=== PATIENT | female | born 1995 | race Caucasian/White ===

== ENCOUNTER 2018-01-23 15:28 | Emergency (ER) | payer OTHER ==
[2018-01-23 16:37] LABS: ADD MAN DIFF? NO
[2018-01-23 16:39] LABS: WHITE BLOOD COUNT 8.4 10^3/ul (4.8-10.8)
[2018-01-23 16:39] LABS: BASOPHILS % 0.1 % (0.0-2.0); EOSINOPHILS # 0.1 10^3/ul (0.0-0.5); EOSINOPHILS % 0.6 % (0.0-7.0); HEMATOCRIT 32.6 % (37.0-47.0); HEMOGLOBIN 11.4 g/dl (12.0-16.0); LYMPHOCYTES # 1.8 10^3/ul (0.8-2.9); LYMPHOCYTES % 20.8 % (15.0-51.0); MEAN CORPUSCULAR HEMOGLOBIN 32.3 pg (29.0-33.0); MEAN CORPUSCULAR VOLUME 92.4 fl (82.0-101.0); MEAN PLATELET VOLUME 8.9 fl (7.4-10.4); MONOCYTE # 0.5 10^3/ul (0.3-0.9); MONOCYTES % 5.5 % (0.0-11.0); NEUTROPHIL # 6.1 10^3/ul (1.6-7.5); NEUTROPHILS % 72.4 % (39.0-77.0); PLATELET COUNT 215 10^3/UL (140-415); RED BLOOD COUNT 3.53 10^6/ul (4.20-5.40); RED CELL DISTRIBUTION WIDTH 12.6 % (11.5-14.5)
[2018-01-23 16:48] LABS: ADD UMIC YES; UR ASCORBIC ACID NEGATIVE (NEGATIVE); UR BACTERIA MODERATE /HPF (NONE SEEN); UR BILIRUBIN (Dip) NEGATIVE (NEGATIVE); UR BLOOD (Dip) NEGATIVE (NEGATIVE); UR CLARITY SLIGHTLY CLOUDY (CLEAR); UR COLOR YELLOW (YELLOW); UR GLUCOSE (Dip) NEGATIVE (NEGATIVE); UR KETONES (Dip) NEGATIVE (NEGATIVE); UR LEUKOCYTE ESTERASE (Dip) 2+ Leu/ul (NEGATIVE); UR MUCUS FEW /HPF (NONE SEEN); UR NITRITE (Dip) NEGATIVE (NEGATIVE); UR RBC 1 /HPF (0-5); UR SPECIFIC GRAVITY (Dip) 1.013 (1.003-1.030); UR SQUAMOUS EPITHELIAL CELL FEW /HPF (FEW); UR TOTAL PROTEIN (Dip) NEGATIVE (NEGATIVE); UR UROBILINOGEN (Dip) NEGATIVE (NEGATIVE); UR WBC 3 /HPF (0-5)
[2018-01-23 17:05] LABS: ALANINE AMINOTRANSFERASE 15 IU/L (13-69); ALBUMIN 3.6 g/dl (3.3-4.9); ALBUMIN/GLOBULIN RATIO 1.05; ALKALINE PHOSPHATASE 54 IU/L (42-121); ANION GAP 12 (8-16); ASPARTATE AMINO TRANSFERASE 14 IU/L (15-46); BILIRUBIN,INDIRECT 0.3 mg/dl (0-1.1); BILIRUBIN,TOTAL 0.3 mg/dl (0.2-1.3); BLOOD UREA NITROGEN 9 mg/dl (7-20); CALCIUM 9.2 mg/dl (8.4-10.2); CARBON DIOXIDE 26 mmol/L (21-31); CHLORIDE 106 mmol/L (97-110); CREATININE 0.44 mg/dl (0.44-1.00); GLUCOSE 84 mg/dl (70-220); POTASSIUM 3.9 mmol/L (3.5-5.1); SODIUM 140 mmol/L (135-144)
== END 2018-01-23 17:53 | disposition home or self-care (01) ==
LOC: FTE 15:28
DX: O23.42 Unspecified infection of urinary tract in pregnancy, second trimester (principal); R10.2 Pelvic and perineal pain; Z3A.18 18 weeks gestation of pregnancy
CPT/HCPCS: 36415; 76805; 80053; 81001; 84702; 85025; 86900; 86901; 99284-25

== ENCOUNTER 2018-01-30 16:54 | Emergency (ER) | payer OTHER ==
[2018-01-30 18:18] LABS: ADD UMIC NO; UR ASCORBIC ACID NEGATIVE (NEGATIVE); UR BILIRUBIN (Dip) NEGATIVE (NEGATIVE); UR BLOOD (Dip) NEGATIVE (NEGATIVE); UR CLARITY CLEAR (CLEAR); UR COLOR STRAW (YELLOW); UR GLUCOSE (Dip) NEGATIVE (NEGATIVE); UR KETONES (Dip) NEGATIVE (NEGATIVE); UR LEUKOCYTE ESTERASE (Dip) NEGATIVE Leu/ul (NEGATIVE); UR NITRITE (Dip) NEGATIVE (NEGATIVE); UR SPECIFIC GRAVITY (Dip) 1.009 (1.003-1.030); UR TOTAL PROTEIN (Dip) NEGATIVE (NEGATIVE); UR UROBILINOGEN (Dip) NEGATIVE (NEGATIVE)
== END 2018-01-30 19:28 | disposition home or self-care (01) ==
LOC: FTE 16:54
DX: O34.82 Maternal care for other abnormalities of pelvic organs, second trimester (principal); N83.8 Other noninflammatory disorders of ovary, fallopian tube and broad ligament; Z3A.18 18 weeks gestation of pregnancy
CPT/HCPCS: 76856; 81003; 99284-25

== ENCOUNTER 2018-04-21 13:21 | Inpatient (IN) | payer OTHER ==
[2018-04-21 14:27] LABS: ADD UMIC YES; UR ASCORBIC ACID NEGATIVE (NEGATIVE); UR BACTERIA FEW /HPF (NONE SEEN); UR BILIRUBIN (Dip) NEGATIVE (NEGATIVE); UR BLOOD (Dip) NEGATIVE (NEGATIVE); UR CLARITY SLIGHTLY CLOUDY (CLEAR); UR COLOR YELLOW (YELLOW); UR GLUCOSE (Dip) NEGATIVE (NEGATIVE); UR KETONES (Dip) NEGATIVE (NEGATIVE); UR LEUKOCYTE ESTERASE (Dip) TRACE Leu/ul (NEGATIVE); UR NITRITE (Dip) NEGATIVE (NEGATIVE); UR RBC 1 /HPF (0-5); UR SPECIFIC GRAVITY (Dip) 1.016 (1.003-1.030); UR SQUAMOUS EPITHELIAL CELL FEW /HPF (FEW); UR TOTAL PROTEIN (Dip) NEGATIVE (NEGATIVE); UR UROBILINOGEN (Dip) 2+ mg/dL (NEGATIVE); UR WBC 2 /HPF (0-5)
[2018-04-21] MEDS ORDERED: ACETAMINOPHEN 650 MG SUPP PR (20:30)
[2018-04-21 21:08] LABS: ADD MAN DIFF? NO
[2018-04-21 21:12] LABS: BASOPHILS % 0.1 % (0.0-2.0); EOSINOPHILS % 0.5 % (0.0-7.0); HEMOGLOBIN 10.7 g/dl (12.0-16.0); LYMPHOCYTES # 1.9 10^3/ul (0.8-2.9); LYMPHOCYTES % 21.7 % (15.0-51.0); MEAN CORPUSCULAR HGB CONC 33.4 g/dl (32.0-37.0); MEAN CORPUSCULAR VOLUME 95.8 fl (82.0-101.0); MEAN PLATELET VOLUME 9.1 fl (7.4-10.4); MONOCYTE # 0.6 10^3/ul (0.3-0.9); MONOCYTES % 6.3 % (0.0-11.0); NEUTROPHIL # 6.2 10^3/ul (1.6-7.5); NEUTROPHILS % 70.3 % (39.0-77.0); PLATELET COUNT 216 10^3/UL (140-415); RED BLOOD COUNT 3.34 10^6/ul (4.20-5.40); RED CELL DISTRIBUTION WIDTH 12.3 % (11.5-14.5)
[2018-04-21 21:12] LABS: WHITE BLOOD COUNT 8.8 10^3/ul (4.8-10.8)
[2018-04-21] MEDS: MAGNESIUM SULFATE 4 GM/100 ML 100 ML IV (21:12)
[2018-04-21] MEDS: BETAMET NA PHOS/AC(6 MG/ML) 5ML INJ IM (21:16)
[2018-04-21] MEDS: MAGNESIUM SULFATE 20 GM/500 ML 500 ML IV (21:43)
[2018-04-21] MEDS: LACTATED RINGER'S 1,000 ML IV (22:47)
[2018-04-22 01:05] LABS: MAGNESIUM 4.7 mg/dl (1.7-2.5)
[2018-04-22] MEDS: LACTATED RINGER'S 1,000 ML IV ×2 (04:27→14:46)
[2018-04-22] MEDS: MAGNESIUM SULFATE 20 GM/500 ML 500 ML IV ×2 (06:01→08:25)
[2018-04-22 07:54] LABS: MAGNESIUM 5.5 mg/dl (1.7-2.5)
[2018-04-22] MEDS: ACETAMINOPHEN 325 MG TAB PO ×3 (08:02→21:28)
[2018-04-22] MEDS: PRENATAL VITAMIN PO (08:23)
[2018-04-22] MEDS: DOCUSATE SODIUM 100 MG CAP PO (09:00)
[2018-04-22 12:29] LABS: MAGNESIUM 6.1 mg/dl (1.7-2.5)
[2018-04-22 15:02] LABS: ADD MAN DIFF? NO
[2018-04-22 15:06] LABS: BASOPHILS % 0.1 % (0.0-2.0); HEMATOCRIT 29.5 % (37.0-47.0); LYMPHOCYTES # 0.8 10^3/ul (0.8-2.9); MEAN CORPUSCULAR HEMOGLOBIN 32.7 pg (29.0-33.0); MEAN CORPUSCULAR HGB CONC 33.9 g/dl (32.0-37.0); MEAN CORPUSCULAR VOLUME 96.4 fl (82.0-101.0); MEAN PLATELET VOLUME 8.6 fl (7.4-10.4); MONOCYTE # 0.3 10^3/ul (0.3-0.9); MONOCYTES % 2.4 % (0.0-11.0); NEUTROPHIL # 12.7 10^3/ul (1.6-7.5); NEUTROPHILS % 90.7 % (39.0-77.0); PLATELET COUNT 189 10^3/UL (140-415); RED BLOOD COUNT 3.06 10^6/ul (4.20-5.40); RED CELL DISTRIBUTION WIDTH 12.1 % (11.5-14.5)
[2018-04-22 15:25] LABS: ALANINE AMINOTRANSFERASE 16 IU/L (13-69); ALBUMIN 3.2 g/dl (3.3-4.9); ALBUMIN/GLOBULIN RATIO 0.94; ALKALINE PHOSPHATASE 103 IU/L (42-121); ANION GAP 11 (8-16); ASPARTATE AMINO TRANSFERASE 18 IU/L (15-46); BILIRUBIN,INDIRECT 0.3 mg/dl (0-1.1); BILIRUBIN,TOTAL 0.3 mg/dl (0.2-1.3); BLOOD UREA NITROGEN 6 mg/dl (7-20); CALCIUM 6.4 mg/dl (8.4-10.2); CARBON DIOXIDE 25 mmol/L (21-31); CHLORIDE 102 mmol/L (97-110); CREATININE 0.44 mg/dl (0.44-1.00); GLUCOSE 125 mg/dl (70-220); POTASSIUM 3.8 mmol/L (3.5-5.1); SODIUM 134 mmol/L (135-144); TOTAL PROTEIN 6.6 g/dl (6.1-8.1)
[2018-04-22] MEDS ORDERED: LEVALBUTEROL (NEB) 0.31 MG/3 ML AMP HHN (15:30)
[2018-04-22 15:37] LABS: D-DIMER 1321.32 ng/ml (<460)
[2018-04-22] MEDS: CA GLUCONATE (GM) 10% 10ML INJ IV (15:52)
[2018-04-22 15:57] LABS: TROPONIN-I < 0.012 ng/ml (0.000-0.120)
[2018-04-22 16:11] LABS: MAGNESIUM 5.3 mg/dl (1.7-2.5)
[2018-04-22] MEDS: BUTORPHANOL 2 MG INJ IV (17:10)
[2018-04-22] MEDS: NIFEdipine 10 MG CAP PO (17:51)
[2018-04-22] MEDS: AL HYDROX/MG HYDROX/SIMETH 30 ML CUP PO (21:28)
[2018-04-22] MEDS: BETAMET NA PHOS/AC(6 MG/ML) 5ML INJ IM (21:28)
[2018-04-22] MEDS: HYDROCODONE/APAP (5/325) TAB PO (23:39)
[2018-04-23] MEDS: NIFEdipine 10 MG CAP PO ×5 (00:24→23:19)
[2018-04-23] MEDS: LACTATED RINGER'S 1,000 ML IV ×2 (00:53→11:26)
[2018-04-23 07:17] LABS: ADD MAN DIFF? NO
[2018-04-23 07:21] LABS: WHITE BLOOD COUNT 13.1 10^3/ul (4.8-10.8)
[2018-04-23 07:21] LABS: ABNORMAL IP MESSAGE 1; BASOPHILS % 0.2 % (0.0-2.0); HEMATOCRIT 29.5 % (37.0-47.0); HEMOGLOBIN 9.9 g/dl (12.0-16.0); LYMPHOCYTES # 0.4 10^3/ul (0.8-2.9); LYMPHOCYTES % 3.1 % (15.0-51.0); MEAN CORPUSCULAR HEMOGLOBIN 32.4 pg (29.0-33.0); MEAN CORPUSCULAR HGB CONC 33.6 g/dl (32.0-37.0); MEAN CORPUSCULAR VOLUME 96.4 fl (82.0-101.0); MEAN PLATELET VOLUME 9.1 fl (7.4-10.4); MONOCYTE # 0.2 10^3/ul (0.3-0.9); MONOCYTES % 1.5 % (0.0-11.0); NEUTROPHIL # 12.4 10^3/ul (1.6-7.5); NEUTROPHILS % 94.4 % (39.0-77.0); PLATELET COUNT 196 10^3/UL (140-415); RED BLOOD COUNT 3.06 10^6/ul (4.20-5.40); RED CELL DISTRIBUTION WIDTH 12.2 % (11.5-14.5)
[2018-04-23 07:32] LABS: POSITIVE DIFF @See below
[2018-04-23 07:52] LABS: ALANINE AMINOTRANSFERASE 14 IU/L (13-69); ALBUMIN 3.2 g/dl (3.3-4.9); ALKALINE PHOSPHATASE 96 IU/L (42-121); ANION GAP 10 (8-16); ASPARTATE AMINO TRANSFERASE 22 IU/L (15-46); BILIRUBIN,INDIRECT 0.4 mg/dl (0-1.1); BILIRUBIN,TOTAL 0.4 mg/dl (0.2-1.3); BLOOD UREA NITROGEN 7 mg/dl (7-20); CALCIUM 8.2 mg/dl (8.4-10.2); CARBON DIOXIDE 23 mmol/L (21-31); CHLORIDE 106 mmol/L (97-110); CREATININE 0.35 mg/dl (0.44-1.00); GLUCOSE 158 mg/dl (70-220); POTASSIUM 4.1 mmol/L (3.5-5.1); SODIUM 135 mmol/L (135-144); TOTAL PROTEIN 6.4 g/dl (6.1-8.1)
[2018-04-23] MEDS: PRENATAL VITAMIN PO (09:18)
[2018-04-23] MEDS: DOCUSATE SODIUM 100 MG CAP PO (09:18)
[2018-04-23] MEDS: SOD CHLORIDE 0.9% 1,000 ML IV (18:16)
[2018-04-23] MEDS: CEFTRIAXONE 1 GM/50 ML (PMX) 50 ML IVPB (18:48)
[2018-04-24] MEDS: SOD CHLORIDE 0.9% 1,000 ML IV ×2 (04:12→17:20)
[2018-04-24] MEDS: NIFEdipine 10 MG CAP PO ×3 (05:54→17:55)
[2018-04-24] MEDS: DOCUSATE SODIUM 100 MG CAP PO (10:20)
[2018-04-24] MEDS: FERROUS SULFATE (EC) 325 MG TAB PO (10:20)
[2018-04-24] MEDS: PRENATAL VITAMIN PO (12:10)
[2018-04-24] MEDS: CEFTRIAXONE 1 GM/50 ML (PMX) 50 ML IVPB (16:52)
[2018-04-24] MEDS ORDERED: CEFAZOLIN 1 GM/50 ML (PMX) 50 ML IVPB (21:00)
== END 2018-04-24 19:35 | disposition home or self-care (01) | DRG 778 ==
LOC: OBT 13:21 → PP1 04-22 00:33 → L-D 13:21 → OBT 20:00 → L-D 20:00
DX: O60.03 Preterm labor without delivery, third trimester (principal); O26.873 Cervical shortening, third trimester; O23.43 Unspecified infection of urinary tract in pregnancy, third trimester; O26.893 Other specified pregnancy related conditions, third trimester; R07.9 Chest pain, unspecified; R06.00 Dyspnea, unspecified; E83.41 Hypermagnesemia; O99.013 Anemia complicating pregnancy, third trimester; D64.9 Anemia, unspecified; B96.20 Unspecified Escherichia coli [E. coli] as the cause of diseases classified elsewhere; Z3A.30 30 weeks gestation of pregnancy
CPT/HCPCS: 71045; 76705; 76815; 76817; 76818; 80053; 81001; 83735; 84484; 85025; 85378; 86850; 86900; 86901; 87086; 93005; 93306; 93970

== ENCOUNTER 2018-06-18 21:24 | Outpatient (CLI) | payer OTHER | END 2018-06-19 02:20 | disposition home or self-care (01) | LOC: OBT 21:24 → L-D 21:24 | DX: O62.9 Abnormality of forces of labor, unspecified (principal); Z3A.38 38 weeks gestation of pregnancy | CPT/HCPCS: 76815 ==

== ENCOUNTER 2018-06-26 10:47 | Inpatient (IN) | payer OTHER ==
[2018-06-26] MEDS ORDERED: AMPICILLIN 2 GM/NS (PMX) 100 ML (11:13)
[2018-06-26 11:21] LABS: ADD MAN DIFF? NO
[2018-06-26 11:26] LABS: BASOPHILS % 0.1 % (0.0-2.0); EOSINOPHILS % 0.1 % (0.0-7.0); HEMOGLOBIN 10.4 g/dl (12.0-16.0); LYMPHOCYTES # 2.2 10^3/ul (0.8-2.9); LYMPHOCYTES % 24.5 % (15.0-51.0); MEAN CORPUSCULAR HEMOGLOBIN 30.7 pg (29.0-33.0); MEAN CORPUSCULAR HGB CONC 33.5 g/dl (32.0-37.0); MEAN CORPUSCULAR VOLUME 91.4 fl (82.0-101.0); MEAN PLATELET VOLUME 9.7 fl (7.4-10.4); MONOCYTE # 0.5 10^3/ul (0.3-0.9); MONOCYTES % 5.8 % (0.0-11.0); NEUTROPHIL # 6.1 10^3/ul (1.6-7.5); NEUTROPHILS % 68.9 % (39.0-77.0); PLATELET COUNT 223 10^3/UL (140-415); RED BLOOD COUNT 3.39 10^6/ul (4.20-5.40); RED CELL DISTRIBUTION WIDTH 12.8 % (11.5-14.5)
[2018-06-26 11:26] LABS: WHITE BLOOD COUNT 8.9 10^3/ul (4.8-10.8)
[2018-06-26] MEDS: LACTATED RINGER'S 1,000 ML IV* (11:29)
[2018-06-26] MEDS: AMPICILLIN 2 GM/NS (PMX) 100 ML IV (11:29)
[2018-06-26] MEDS ORDERED: METHYLERGONOVINE 0.2 MG INJ IM (11:30)
[2018-06-26] MEDS ORDERED: MISOPROSTOL 200 MCG TAB PR ×2 (11:30→16:30)
[2018-06-26] MEDS ORDERED: BUTORPHANOL 2 MG INJ IV (11:30)
[2018-06-26] MEDS ORDERED: OXYTOCIN 30 UNITS/LR 500 ML IV ×2 (11:30→16:30)
[2018-06-26] MEDS ORDERED: CARBOPROST 250 MCG INJ IM ×2 (11:30→16:30)
[2018-06-26] MEDS: LIDOCAINE 0.5% (SDV) 50 ML INJ INFIL (11:30)
[2018-06-26] MEDS: OXYTOCIN 30 UNITS/LR 500 ML IV ×3 (11:45→16:47)
[2018-06-26 12:04] LABS: INR 0.85; PROTIME 11.7 Sec (11.9-14.9); PT RATIO 0.9
[2018-06-26 12:05] LABS: PARTIAL THROMBOPLASTIN TIME 25.2 Sec (23.0-35.0)
[2018-06-26] MEDS: IBUPROFEN 600 MG TAB PO (12:21)
[2018-06-26 13:18] LABS: HEPATITIS B SURFACE ANTIGEN NEGATIVE (NEGATIVE)
[2018-06-26] MEDS ORDERED: AMPICILLIN 1 GM/NS (PMX) 50 ML IV (15:30)
[2018-06-26] MEDS ORDERED: NACL 0.9% 3 ML SYG IV (16:30)
[2018-06-26] MEDS ORDERED: OXYCODONE/ASPIRIN (4.88/325) TAB PO ×2 (16:30)
[2018-06-26] MEDS: WITCH HAZEL/GLYCERIN PAD PR (18:00)
[2018-06-26] MEDS: IBUPROFEN 800 MG TAB PO ×2 (18:00→23:42)
[2018-06-26] MEDS: BENZOCAINE 20% 56 ML SPRAY TOP (18:00)
[2018-06-26] MEDS: LANOLIN 7 GM TUBE TOP (18:00)
[2018-06-26 21:12] LABS: RAPID PLASMA REAGIN NONREACTIVE (NR)
[2018-06-27] MEDS: IBUPROFEN 800 MG TAB PO ×4 (05:41→23:53)
[2018-06-27 08:19] LABS: ADD MAN DIFF? NO
[2018-06-27 08:23] LABS: WHITE BLOOD COUNT 8.1 10^3/ul (4.8-10.8)
[2018-06-27 08:23] LABS: BASOPHILS % 0.1 % (0.0-2.0); EOSINOPHILS % 0.2 % (0.0-7.0); HEMATOCRIT 27.4 % (37.0-47.0); LYMPHOCYTES # 1.8 10^3/ul (0.8-2.9); LYMPHOCYTES % 22.4 % (15.0-51.0); MEAN CORPUSCULAR HEMOGLOBIN 30.4 pg (29.0-33.0); MEAN CORPUSCULAR HGB CONC 32.8 g/dl (32.0-37.0); MEAN CORPUSCULAR VOLUME 92.6 fl (82.0-101.0); MEAN PLATELET VOLUME 9.8 fl (7.4-10.4); MONOCYTE # 0.3 10^3/ul (0.3-0.9); MONOCYTES % 4.1 % (0.0-11.0); NEUTROPHIL # 5.8 10^3/ul (1.6-7.5); NEUTROPHILS % 72.6 % (39.0-77.0); PLATELET COUNT 190 10^3/UL (140-415); RED BLOOD COUNT 2.96 10^6/ul (4.20-5.40); RED CELL DISTRIBUTION WIDTH 12.8 % (11.5-14.5)
[2018-06-27] MEDS: SENNA/DOCUSATE NA (8.6MG/50MG) TAB PO (08:55)
[2018-06-27] MEDS ORDERED: LIDOCAINE 1% (STERILE-PAK) 30 ML INJ (19:48)
[2018-06-28] MEDS: IBUPROFEN 800 MG TAB PO ×2 (05:51→12:33)
[2018-06-28] MEDS: SENNA/DOCUSATE NA (8.6MG/50MG) TAB PO (09:09)
== END 2018-06-28 15:35 | disposition home or self-care (01) | DRG 807 ==
LOC: OBT 10:47 → L-D 10:47 → OBT 11:02 → L-D 11:00 → PP1 17:10
PROVIDERS: Obstetrics & Gynecology
PROC: 10E0XZZ Delivery of Products of Conception, External Approach (ICD-10-PCS; principal; 2018-06-26)
PROC: 0HQ9XZZ Repair Perineum Skin, External Approach (ICD-10-PCS; 2018-06-26)
PROC: 0UQMXZZ Repair Vulva, External Approach (ICD-10-PCS; 2018-06-26)
PROC: 3E033VJ Introduction of Other Hormone into Peripheral Vein, Percutaneous Approach (ICD-10-PCS; 2018-06-26)
DX: O48.0 Post-term pregnancy (principal); O70.0 First degree perineal laceration during delivery; Z37.0 Single live birth; Z3A.40 40 weeks gestation of pregnancy
CPT/HCPCS: 85025; 85610; 85730; 86592; 86850; 86900; 86901; 87340